=== PATIENT | female | born 1965 | race African-American/Black ===

== ENCOUNTER 2019-01-04 13:46 | Emergency (ER) | payer OTHER ==
[~2019-01-04] VITALS: Wt 81.6 kg
[~2019-01-04 13:46] MED LIST: AMBIEN10 MG PO; AMOXICILLIN500 MG PO; CIPROFLOXACIN500 MG PO; GEODON80 MG PO; NEURONTIN600 MG PO; PERCOCET 325 MG1 TA2 PO; PROZAC40 MG PO; TRAMADOL HCL50 MG PO; TRAZADONE HYDR100 MG PO; VICODIN 5/500 505 MG PO
[2019-01-04] MEDS ORDERED: DOXYCYCLINE100 M3 PO (14:17)
== END 2019-01-04 14:33 ==
LOC: ED 13:46
DX: L73.8 Other specified follicular disorders (principal); R03.0 Elevated blood-pressure reading, without diagnosis of hypertension; Z98.890 Other specified postprocedural states; Z90.710 Acquired absence of both cervix and uterus; Z98.51 Tubal ligation status; Z88.6 Allergy status to analgesic agent; Z88.5 Allergy status to narcotic agent

== ENCOUNTER 2020-03-12 13:17 | Emergency (ER) | payer OTHER ==
[~2020-03-12] VITALS: Ht 167.6 cm; Wt 72.6 kg
[~2020-03-12 13:17] MED LIST changes: +DOXYCYCLINE100 M3 PO
[2020-03-12 14:38] LABS: BASO % 0.4 % (0.0-1.0); EOS # 0.1 10*3/uL (0.0-0.4); EOS % 0.8 % (1.0-4.0); HEMATOCRIT 36.8 % (37.0-47.0); LYMPH % 27.7 % (27.0-41.0); MEAN CELL VOLUME 83.8 fl (81.0-99.0); MEAN CORPUSCULAR HGB 27.6 pg (27.0-31.0); MEAN CORPUSCULAR HGB CONC 32.9 g/dl (33.0-37.0); MEAN PLATELET VOLUME 9.7 fl (9.6-12.3); MONO # 0.6 10*3/uL (0.1-1.0); MONO % 8.5 % (3.0-9.0); NEUT # 4.5 10*3/uL (2.3-7.9); NEUT % 62.3 % (47.0-73.0); PLATELET COUNT AUTOMATED 238 10*3/uL (130-400); RED BLOOD COUNT 4.39 10*6/uL (4.10-5.10); WHITE BLOOD COUNT 7.3 10*3/uL (4.8-10.8)
[2020-03-12 14:57] LABS: ALBUMIN 3.6 gm/dl (3.1-4.5); CREATININE 1.24 mg/dL (0.55-1.02); POTASSIUM 3.5 mmol/L (3.5-5.1); TOTAL PROTEIN 7.2 gm/dL (6.4-8.2)
[2020-03-12] MEDS ORDERED: AVPAK AZITHROM250 MG PO (17:00)
[2020-03-12] MEDS ORDERED: ROBITUSSIN DM 101 OZ PO (17:00)
[2020-03-12] MEDS ORDERED: PERCOCET 5-3251 EACH PO (17:02)
[2020-03-12 17:25] LABS: BILIRUBIN NEGATIVE (NEGATIVE); BLOOD NEGATIVE (NEGATIVE); CLARITY CLEAR (CLEAR); COLOR YELLOW (YELLOW); GLUCOSE NEGATIVE (NEGATIVE); KETONE NEGATIVE (NEGATIVE); LEUKO ESTERASE NEGATIVE (NEGATIVE); NITRITE NEGATIVE (NEGATIVE); PH 6.5 (5.0-9.0); UROBILINOGEN < 0.2 E.U./dl (0.2-1.0)
[2020-03-12 17:26] LABS: EPITHELIAL CELLS 0-2; MUCOUS TRACE; WBC 0-2 wbc/hpf (0-5)
== END 2020-03-12 17:49 | disposition home or self-care (01) ==
LOC: ED 13:17
PROVIDERS: Nurse Practitioner Family
DX: S16.1XXA Strain of muscle, fascia and tendon at neck level, initial encounter (principal); S39.012A Strain of muscle, fascia and tendon of lower back, initial encounter; J18.9 Pneumonia, unspecified organism; Z20.828 Contact with and (suspected) exposure to other viral communicable diseases; Z88.6 Allergy status to analgesic agent; Z79.899 Other long term (current) drug therapy; V43.52XA Car driver injured in collision with other type car in traffic accident, initial encounter; Y93.89 Activity, other specified; Y92.89 Other specified places as the place of occurrence of the external cause; Y99.8 Other external cause status

== ENCOUNTER 2020-08-25 14:12 | Emergency (ER) | payer OTHER ==
[~2020-08-25] VITALS: Wt 79.4 kg
[~2020-08-25 14:12] MED LIST changes: +AVPAK AZITHROM250 MG PO; +PERCOCET 5-3251 EACH PO; +ROBITUSSIN DM 101 OZ PO
[2020-08-25 14:41] LABS: BASO % 0.2 % (0.0-1.0); EOS % 0.2 % (1.0-4.0); HEMATOCRIT 35.4 % (37.0-47.0); LYMPH # 2.9 10*3/uL (1.3-4.4); MEAN CELL VOLUME 81.4 fl (81.0-99.0); MEAN CORPUSCULAR HGB 26.2 pg (27.0-31.0); MEAN CORPUSCULAR HGB CONC 32.2 g/dl (33.0-37.0); MEAN PLATELET VOLUME 9.4 fl (9.6-12.3); MONO # 0.6 10*3/uL (0.1-1.0); MONO % 5.1 % (3.0-9.0); NEUT # 8.5 10*3/uL (2.3-7.9); NEUT % 70.3 % (47.0-73.0); PLATELET COUNT AUTOMATED 227 10*3/uL (130-400); RED BLOOD COUNT 4.35 10*6/uL (4.10-5.10); RED CELL DISTRI WIDTH 15.3 % (0-14.5); WHITE BLOOD COUNT 12.1 10*3/uL (4.8-10.8)
[2020-08-25 14:52] LABS: ACT PARTIAL THROMBO TIME 29.6 SECONDS (20.0-32.1)
[2020-08-25 15:06] LABS: ALBUMIN 3.5 gm/dl (3.1-4.5); CREATININE 1.39 mg/dL (0.55-1.02); POTASSIUM 3.3 mmol/L (3.5-5.1); TOTAL PROTEIN 6.9 gm/dL (6.4-8.2); TROPONIN I 0.026 ng/ml (<0.045)
[2020-08-25] MEDS ORDERED: NORVASC10 MG PO (19:26)
[2020-08-25] MEDS ORDERED: Percocet 325 MG1 TAB PO (19:26)
[2020-08-25] MEDS ORDERED: VOLTAREN100 GM T (19:29)
[2020-08-25] MEDS ORDERED: CYCLOBENZAPRINE10 MG PO (19:29)
== END 2020-08-25 20:10 | disposition home or self-care (01) ==
LOC: ED 14:12
PROVIDERS: Emergency Medicine
DX: S22.31XA Fracture of one rib, right side, initial encounter for closed fracture (principal); S43.101A Unspecified dislocation of right acromioclavicular joint, initial encounter; S20.214A Contusion of middle front wall of thorax, initial encounter; S40.012A Contusion of left shoulder, initial encounter; S40.022A Contusion of left upper arm, initial encounter; S40.021A Contusion of right upper arm, initial encounter; S80.12XA Contusion of left lower leg, initial encounter; S80.11XA Contusion of right lower leg, initial encounter; I12.9 Hypertensive chronic kidney disease with stage 1 through stage 4 chronic kidney disease, or unspecified chronic kidney disease; N18.30 Chronic kidney disease, stage 3 unspecified; W18.39XA Other fall on same level, initial encounter; Y93.89 Activity, other specified; Y92.89 Other specified places as the place of occurrence of the external cause; Y99.8 Other external cause status